=== PATIENT | female | born 1990 | race Caucasian/White ===

== ENCOUNTER → 2016-09-17 | Outpatient (REF) | payer BC | LOC: M LAB REF 16:26 | PROVIDERS: ATTEND Physician Assistant | DX: R30.0 Dysuria (principal) ==

== ENCOUNTER → 2017-02-04 | Outpatient (REF) | payer BC | LOC: M LAB REF 16:55 | PROVIDERS: ATTEND Obstetrics & Gynecology | DX: Z12.4 Encounter for screening for malignant neoplasm of cervix (principal) ==

== ENCOUNTER → 2017-05-14 | Outpatient (CLI) | payer BC ==
[2017-05-14 19:48] LABS: HCG, SERUM QUANTITATIVE 4522 MIU/ML
== END ==
LOC: M LAB 17:35
DX: O26.851 Spotting complicating pregnancy, first trimester (principal); Z3A.00 Weeks of gestation of pregnancy not specified
CPT/HCPCS: 84702

== ENCOUNTER → 2017-05-16 | Outpatient (CLI) | payer BC ==
[2017-05-16 19:30] LABS: HCG, SERUM QUANTITATIVE 5422 MIU/ML
== END ==
LOC: M LAB 18:03
DX: O26.851 Spotting complicating pregnancy, first trimester (principal)
CPT/HCPCS: 84702

== ENCOUNTER → 2017-05-22 | Outpatient (CLI) | payer BC ==
[2017-05-22 13:23] LABS: HCG, SERUM QUANTITATIVE 3045 MIU/ML
[2017-05-23 08:51] LABS: TYPE AND SCREEN 1 1
== END ==
LOC: M LAB 11:10
DX: O20.0 Threatened abortion (principal)
CPT/HCPCS: 84702

== ENCOUNTER → 2017-05-31 | Outpatient (CLI) | payer BC ==
[2017-05-31 14:50] LABS: HCG, SERUM QUANTITATIVE 68 MIU/ML
== END ==
LOC: M LAB 13:59
DX: O26.851 Spotting complicating pregnancy, first trimester (principal)
CPT/HCPCS: 84702

== ENCOUNTER → 2017-06-07 | Outpatient (CLI) | payer BC ==
[2017-06-07 16:17] LABS: HCG, SERUM QUANTITATIVE 7 MIU/ML
== END ==
LOC: M LAB 14:57
DX: O03.4 Incomplete spontaneous abortion without complication (principal)
CPT/HCPCS: 84702

== ENCOUNTER → 2017-12-01 | Outpatient (CLI) | payer BC ==
[2017-12-01 18:18] LABS: BASO % 0.5 % (0.0-1.0); EOS # 0.1 10^3/uL (0.0-0.50); EOS % 0.8 % (0.0-3.0); HEMATOCRIT 38.9 % (36.0-47.0); HEMOGLOBIN 12.7 g/dl (12.0-15.5); IMMATURE GRANULOCYTE % 0.5 % (0-3.0); LYMPH # 1.6 10^3/uL (1.5-6.5); LYMPH % 25.2 % (24.0-44.0); MEAN CORPUSCULAR HEMOGLOBIN 27.5 pg (27.0-33.0); MEAN CORPUSCULAR HGB CONC 32.6 g/dl (32.0-36.5); MEAN CORPUSCULAR VOLUME 84.2 fl (80.0-96.0); MONO # 0.6 10^3/uL (0.0-0.8); MONO % 8.6 % (0.0-5.0); NEUTROPHILS # 4.1 10^3/uL (1.8-7.7); NEUTROPHILS % 64.4 % (36.0-66.0); PLATELET COUNT, AUTOMATED 261 10^3/uL (150-450); RED BLOOD COUNT 4.62 10^6/uL (4.00-5.40); RED CELL DISTRIBUTION WIDTH 13.9 % (11.5-14.5); WHITE BLOOD COUNT 6.4 10^3/uL (4.0-10.0)
[2017-12-01 21:29] LABS: CHLAMYDIA DNA AMPLIFICATION NEGATIVE (NEGATIVE); GC DNA AMPLIFICATION NEGATIVE (NEGATIVE)
[2017-12-03 09:02] LABS: RUBELLA IgG QUALITATIVE IMMUNE (IMMUNE)
[2017-12-03 09:10] LABS: HBsAg Prenatal NEGATIVE (NEGATIVE)
[2017-12-03 09:31] LABS: HEPATITIS C VIRUS ABY INDEX 0.1 INDEX (<0.8)
[2017-12-03 09:32] LABS: HIV 1&2 SCREEN CENTAUR NEGATIVE (NEGATIVE)
== END ==
LOC: M LAB 16:50
DX: Z36.89 Encounter for other specified antenatal screening (principal); Z3A.08 8 weeks gestation of pregnancy
CPT/HCPCS: 86762

== ENCOUNTER → 2018-01-01 | Outpatient (CLI) | payer BC | LOC: M LAB 07:02 | DX: Z13.79 Encounter for other screening for genetic and chromosomal anomalies (principal) | CPT/HCPCS: 36415 ==

== ENCOUNTER → 2018-01-29 | Outpatient (CLI) | payer BC | LOC: M LAB 07:22 | DX: Z13.79 Encounter for other screening for genetic and chromosomal anomalies (principal) | CPT/HCPCS: 36415 ==

== ENCOUNTER → 2018-02-17 | Outpatient (CLI) | payer BC | LOC: M RAD 17:09 | DX: Z34.82 Encounter for supervision of other normal pregnancy, second trimester (principal); Z36.89 Encounter for other specified antenatal screening; Z3A.19 19 weeks gestation of pregnancy | CPT/HCPCS: 76811 ==

== ENCOUNTER → 2018-03-31 | Outpatient (REF) | payer BC ==
[2018-03-31 07:38] LABS: HEMATOCRIT 38.1 % (36.0-47.0); HEMOGLOBIN 12.4 g/dl (12.0-15.5); MEAN CORPUSCULAR HEMOGLOBIN 27.6 pg (27.0-33.0); MEAN CORPUSCULAR HGB CONC 32.5 g/dl (32.0-36.5); MEAN CORPUSCULAR VOLUME 84.7 fl (80.0-96.0); PLATELET COUNT, AUTOMATED 295 10^3/uL (150-450); WHITE BLOOD COUNT 11.5 10^3/uL (4.0-10.0)
[2018-03-31 08:00] LABS: GLUCOSE CHALLENGE TEST 1 HOUR 101 MG/DL (LESS THAN 140)
[2018-03-31 08:15] LABS: TYPE AND SCREEN 1 1
== END ==
LOC: M LAB REF 07:16
DX: Z34.82 Encounter for supervision of other normal pregnancy, second trimester (principal)
CPT/HCPCS: 82950

== ENCOUNTER → 2018-05-27 | Outpatient (REF) | payer BC ==
[2018-05-27 20:33] LABS: INFLUENZA A AMPLIFICATION POSITIVE (NEGATIVE); INFLUENZA B AMPLIFICATION NEGATIVE (NEGATIVE)
== END ==
LOC: M LAB REF 09:09
PROVIDERS: ATTEND Physician Assistant
DX: J11.1 Influenza due to unidentified influenza virus with other respiratory manifestations (principal)

== ENCOUNTER → 2018-06-08 | Outpatient (REF) | payer BC | LOC: M LAB REF 16:51 | PROVIDERS: ATTEND Advanced Practice Midwife | DX: Z34.83 Encounter for supervision of other normal pregnancy, third trimester (principal) ==

== ENCOUNTER → 2018-06-16 | Outpatient (CLI) | payer BC ==
[~2018-06-16] MED LIST: COLA100C5 PO; IBUP1TAB7 PO; MOM30SS PO; PERCOCET PO; PRENTAB9 PO
[2018-06-16 11:49] LABS: HEMATOCRIT 38.5 % (36.0-47.0); MEAN CORPUSCULAR HEMOGLOBIN 26.4 pg (27.0-33.0); MEAN CORPUSCULAR HGB CONC 31.2 g/dl (32.0-36.5); MEAN CORPUSCULAR VOLUME 84.6 fl (80.0-96.0); PLATELET COUNT, AUTOMATED 248 10^3/uL (150-450); RED BLOOD COUNT 4.55 10^6/uL (4.00-5.40); WHITE BLOOD COUNT 9.1 10^3/uL (4.0-10.0)
[2018-06-16 12:46] LABS: TOTAL PROTEIN,RANDOM URINE 19.7 MG/DL (0.0-12.0)
[2018-06-16 12:49] LABS: ALT/SGPT 15 U/L (12-78); BILIRUBIN,TOTAL 0.3 MG/DL (0.2-1.0); CREATININE FOR GFR 0.58 MG/DL (0.55-1.30); GLOMERULAR FILTRATION RATE > 60.0 (>60); LDH LACTATE DEHYDROGENASE 134 U/L (84-246); URIC ACID 4.3 MG/DL (2.6-6.0)
== END ==
LOC: M LAB 09:43
PROVIDERS: ATTEND Advanced Practice Midwife
DX: O16.3 Unspecified maternal hypertension, third trimester (principal)

== ENCOUNTER → 2018-06-16 | Outpatient (CLI) | payer BC ==
--- NOTE | 2018-06-16 14:08 | REP ---
Clinical: Growth evaluation. Maternal hypertension. Comparison: None . Findings: Examination demonstrates a single live intrauterine in cephalic presentation. motion is identified by technologist. Placenta is noted anterior and grade grade 1 without evidence for placenta previa or abruption. Amniotic fluid volume is normal. Cervix measures 3.9 cm in length and appears closed. Gestational age by LMP 36 weeks 6 days with IAN 07/08/2018 . Gestational age by current measurements 37 weeks 4 day with IAN 07/03/2018 . FHR equals 160 beats per minute. BPD 9.2 cm 37 weeks 3 days HC 32.9 cm 37 weeks 3 days AC 34.0 cm 37 weeks 6 days FL 7.4 cm 37 weeks 6 days HL 6.5 cm 37 weeks 3 days HC/AC ratio 0.97 Estimated weight 3303 grams ( 69th percentile). Amniotic fluid index: 13.2 cm (7.5 - 24.5). Limited anatomical assessment without obvious abnormality. Impression: Single live advanced gestation in cephalic presentation demonstrating appropriate interval growth. No gross abnormalities are identified. Electronically Signed by Ricci Calderón MD 06/16/2018 02:00 P
== END ==
LOC: M RAD 13:07
PROVIDERS: ATTEND Advanced Practice Midwife
DX: O16.3 Unspecified maternal hypertension, third trimester (principal); Z3A.36 36 weeks gestation of pregnancy

== ENCOUNTER 2018-06-18 11:46 | Inpatient (IN) | payer BC ==
[2018-06-18] VITALS (14 sets, daily range): BP systolic 112–176; BP diastolic 63–94
[~2018-06-18] VITALS: Ht 172.7 cm; Wt 118.2 kg
[2018-06-18] MEDS ORDERED: PRENTAB9 PO (12:16)
--- NOTE | 2018-06-18 13:21 | HPE ---
DATE OF ADMISSION: 06/18/2018 HISTORY: 28-year-old, (G) 3, para (P) 0-0-2-0, female at 37 and 1/7 weeks gestation by last menstrual period (LMP) consistent with 8 week ultrasound and expected date of confinement (EDC) of 07/08/2018 who presents for labor induction due to diagnosis of gestational hypertension. The patient denies headaches or contractions. COURSE: Patient initiated care at 8 weeks gestation on 12/01/2017. Her first trimester blood pressure was 118/82. course was significant for history of spinal fusion surgery. She did have a consult with anesthesia during antepartum care. They were unable to determine with certainty if they would be able to place an epidural catheter or not. She developed hypertension at 36 plus weeks on 06/15/2018 with blood pressure of 138/102 in the office. OBSTETRICAL HISTORY: Therapeutic (TAB) times one. Spontaneous times one. MEDICAL HISTORY: Cervical dysplasia. SURGICAL HISTORY: 1. Spinal fusion in 2006. 2. LEEP procedure in 2015. ALLERGIES: None. SOCIAL HISTORY: Father of the baby is involved. Patient denies cigarettes, alcohol or drug use. FAMILY HISTORY: Noncontributory. PHYSICAL EXAMINATION: Blood pressure 148/84. Pulse 84. No apparent distress. Head and neck exam normal. Lungs: Clear. Heart: Regular rate and rhythm. Abdomen: Nontender. Gravid. heart tones Category 1. Contractions irregular. Sterile Vaginal Exam: Fingertip, 70%, -2, posterior, vertex, moderate consistency. LABS: Blood type A negative. Rubella immune. RPR nonreactive. Hepatitis B and C negative. Diabetes screen 101. GBS negative on 06/08/2018. ASSESSMENT: 28-year-old, G3, P0-0-2-0 female at 37 and 1/7 weeks gestation admitted with gestational hypertension. The patient is admitted on 06/18/2018 and plan is for labor induction. Risks of induction were discussed.
[2018-06-18] MEDS: miSOPROStol 50 MCG 1/2 TAB (S0191) SL SCH ×2 (13:38→18:59)
[2018-06-18 13:51] LABS: HEMATOCRIT 39.2 % (36.0-47.0); HEMOGLOBIN 12.7 g/dl (12.0-15.5); MEAN CORPUSCULAR HGB CONC 32.4 g/dl (32.0-36.5); MEAN CORPUSCULAR VOLUME 83.4 fl (80.0-96.0); PLATELET COUNT, AUTOMATED 250 10^3/uL (150-450); WHITE BLOOD COUNT 10.4 10^3/uL (4.0-10.0)
[2018-06-18 14:19] LABS: ALT/SGPT 13 U/L (12-78); BILIRUBIN,TOTAL 0.3 MG/DL (0.2-1.0); CREATININE FOR GFR 0.56 MG/DL (0.55-1.30); GLOMERULAR FILTRATION RATE > 60.0 (>60); LDH LACTATE DEHYDROGENASE 155 U/L (84-246)
[2018-06-18] MEDS ORDERED: LR 1,000 ML IV SCH (23:05)
[2018-06-18] MEDS ORDERED: OXYTOCIN DRIP 30 UNITS in APPROPRIATE DILUENT 1 EA IV SCH (23:15)
[2018-06-19] VITALS (48 sets, daily range): BP systolic 93–166; BP diastolic 50–104
[2018-06-19] MEDS ORDERED: FENTANYL 2MCG/ML ROPIVACAINE 0.2% IN 0.9% NACL 100ML IVBAG As Ordered ONE ×2 (00:47→09:58)
[2018-06-19] MEDS ORDERED: PROMETHAZINE INJ 25 MG/ML VIAL (J2550) IV ONE (02:45)
[2018-06-19] MEDS ORDERED: BUTORPHANOL 2 MG/ML INJ (J0595) IV ONE (02:45)
--- NOTE | 2018-06-19 08:54 | IPNPDOC ---
Text Note Date of Service The patient was seen on 06/19/18. NOTE Bedside sono confirms vertex presentation Pitocin @ 8mu UC Q 2-3 minutes, mild SVE difficult to reach, outer os FT, unable to pass through inner os, -3, + bloody show Attempted to place Cooks catheter, aborted attempt when unable to pass catheter through inner os Will reattempt in a few hours. Pt is in agreement. VS,Fishbone, I+O VS, Fishbone, I+O Laboratory Tests 06/18/18 13:25 Red Blood Count 4.70, Mean Corpuscular Volume 83.4, Mean Corpuscular Hemoglobin 27.0, Mean Corpuscular Hemoglobin Concent 32.4, Red Cell Distribution Width 14.9 H, Aspartate Amino Transf (AST/SGOT) 14, Alanine Aminotransferase (ALT/SGPT) 13, Lactate Dehydrogenase 155, Total Bilirubin 0.3, Uric Acid 5.0 Vital Signs Date Time Temp Pulse Resp B/P (MAP) Pulse Ox O2 Delivery O2 Flow Rate FiO2 06/19/18 07:32 92 130/74 (92) 06/19/18 07:19 97.8 18 Candelaria Segundo CNM Jun 19, 2018 08:54
--- NOTE | 2018-06-19 11:30 | IPNPDOC ---
Text Note Date of Service The patient was seen on 06/19/18. NOTE Comfortable with epidural Pitocin restarted @ 2 mu FH 150, Cat I UC Q 2-3 minutes, mild SVE cervix more anterior, soft, /-1, able to pass through inner os Cooks catheter placed 60/40cc Moderate bloody show Dr Madera updated. VS,Fishbone, I+O VS, Fishbone, I+O Laboratory Tests 06/18/18 13:25 Red Blood Count 4.70, Mean Corpuscular Volume 83.4, Mean Corpuscular Hemoglobin 27.0, Mean Corpuscular Hemoglobin Concent 32.4, Red Cell Distribution Width 14.9 H, Aspartate Amino Transf (AST/SGOT) 14, Alanine Aminotransferase (ALT/SGPT) 13, Lactate Dehydrogenase 155, Total Bilirubin 0.3, Uric Acid 5.0 Vital Signs Date Time Temp Pulse Resp B/P (MAP) Pulse Ox O2 Delivery O2 Flow Rate FiO2 06/19/18 09:32 98.0 95 20 144/89 (107) Candelaria Segundo CNM Jun 19, 2018 11:30
[2018-06-19] MEDS ORDERED: ONDANSETRON 4MG/2ML VIAL (J2405) IV PRN ×4 (12:00→19:15)
[2018-06-19] MEDS ORDERED: NALOXONE INJ 0.4 MG/1 ML VIAL (J2310) IV PRN ×3 (12:00→18:16)
[2018-06-19] MEDS ORDERED: diphenhydrAMINE INJ 50MG/ML VIAL (J1200) IV PRN ×2 (12:00→18:16)
[2018-06-19] MEDS ORDERED: REFRIGERATOR IV KEYS XX PRN (12:00)
[2018-06-19] MEDS ORDERED: FENTANYL/ROPIVACAINE/NACL BAG 100 ML EPIDURAL SCH (12:00)
[2018-06-19] MEDS ORDERED: ePHEDrine SULFATE 25 MG/5 ML(5MG/ML) SYRINGE IV PRN (12:00)
[2018-06-19] MEDS ORDERED: EPIDURAL/PCA KEYS XX PRN (12:00)
[2018-06-19] MEDS ORDERED: EPIDURAL COMMENT XX SCH (12:00)
[2018-06-19] MEDS ORDERED: LACTATED RINGER'S 1000 ML IV PRN (12:00)
--- NOTE | 2018-06-19 13:32 | IPNPDOC ---
Text Note Date of Service The patient was seen on 06/19/18. NOTE UC difficult to trace due to position and habitus FH Cat II, episode of tachycardia to 170's-180's resolved with pitocin off and IV fluid bolus Now 160's, minimal variability. IV bolus continues. Cooks catheter in place Will update Dr Madera VS,Allyson, I+O VS, Allyson, I+O Vital Signs Date Time Temp Pulse Resp B/P (MAP) Pulse Ox O2 Delivery O2 Flow Rate FiO2 06/19/18 13:18 99.4 96 18 136/79 (98) Candelaria Segundo CNM Jun 19, 2018 13:32
--- NOTE | 2018-06-19 15:15 | IPNPDOC ---
Text Note Date of Service The patient was seen on 06/19/18. NOTE heart tracing varies from 150's with minimal variability to wild accelerations 170's-180's with activity that is difficult to monitor UC not tracing at this time External cooks bulb deflated. Inner bulb palpable through cervical os, but still firmly in place. Increased bloody show Vaginal bulb reinflated with 40cc NS Dr Madera aware of pt status and inability to restart pitocin until Cat I tracing VS,Fishbone, I+O VS, Fishbone, I+O Vital Signs Date Time Temp Pulse Resp B/P (MAP) Pulse Ox O2 Delivery O2 Flow Rate FiO2 06/19/18 13:18 99.4 96 18 136/79 (98) Candelaria Segundo CNM Jun 19, 2018 15:15
[2018-06-19] MEDS ORDERED: BICITRA 30ML SOLN UDC PO ONE (16:30)
[2018-06-19] MEDS ORDERED: LACTATED RINGER'S 1000 ML IV STA (16:30)
[2018-06-19] MEDS ORDERED: AZITHROMYCIN INJ 500 MG, VIAL MATE ADAPTER 1 EACH in D5W 250 ML IV ONE (16:30)
[2018-06-19 16:31] LABS: HEMATOCRIT 35.3 % (36.0-47.0); HEMOGLOBIN 11.4 g/dl (12.0-15.5); MEAN CORPUSCULAR HEMOGLOBIN 27.1 pg (27.0-33.0); MEAN CORPUSCULAR HGB CONC 32.3 g/dl (32.0-36.5); MEAN CORPUSCULAR VOLUME 83.8 fl (80.0-96.0); PLATELET COUNT, AUTOMATED 224 10^3/uL (150-450); RED BLOOD COUNT 4.21 10^6/uL (4.00-5.40); WHITE BLOOD COUNT 11.3 10^3/uL (4.0-10.0)
--- NOTE | 2018-06-19 16:36 | IPNPDOC ---
Text Note Date of Service The patient was seen on 06/19/18. NOTE Pitocin restarted 1526 with Cat I tracing Pitocin off 1605 for Cat II tracing with minimal variability Dr Madera informed of inability to augment labor, called Cooks catheter removed, 1-2 cm, no significant change Pt and family verbalize understanding of need for VS,Fishbone, I+O VS, Fishbone, I+O Vital Signs Date Time Temp Pulse Resp B/P (MAP) Pulse Ox O2 Delivery O2 Flow Rate FiO2 06/19/18 13:18 99.4 96 18 136/79 (98) Candelaria Segundo CNM Jun 19, 2018 16:36
[2018-06-19] MEDS ORDERED: ONDANSETRON 4MG/2ML VIAL (J2405) As Ordered ONE (17:18)
[2018-06-19] MEDS ORDERED: OXYTOCIN INJ 10 UNITS/ML VIAL (J2590) As Ordered ONE ×2 (17:18→18:08)
[2018-06-19] MEDS ORDERED: dexameTHASONE 4 MG/ML 1ML VIAL (J1100) As Ordered ONE (17:18)
[2018-06-19] MEDS ORDERED: LIDOCAINE PRES-FREE 2% 10ML AMP As Ordered ONE (17:18)
[2018-06-19] MEDS ORDERED: MORPHINE PRES-FREE INJ 10 MG/10 ML VIAL (J2274) As Ordered ONE (17:21)
[2018-06-19] MEDS ORDERED: PHENYLephrine HCL 500 MCG/5 ML (100MCG/ML) SYRINGE (J2370) As Ordered ONE (17:47)
[2018-06-19] MEDS ORDERED: ePHEDrine SULFATE 25 MG/5 ML(5MG/ML) SYRINGE As Ordered ONE (17:58)
[2018-06-19 18:13] LABS: CORD GAS ABE A -3.1; CORD GAS HCO3 A 24.7 MEQ/L; CORD GAS O2 SAT A 26.3 %; CORD GAS PCO2 A 55.4 mmHg; CORD GAS PH A 7.267 UNITS; CORD GAS PO2 A 15.9 mmHg; CORD GAS SBC A 20.3 MEQ/L; CORD GAS TCO2 A 26.4 MEQ/L
[2018-06-19] MEDS ORDERED: METOCLOPRAMIDE INJ 10MG/2ML VIAL (J2765) IV PRN (18:16)
[2018-06-19] MEDS ORDERED: NALBUPHINE HCL 10 MG/ML AMP (J2300) IV PRN ×2 (18:16→19:15)
[2018-06-19 18:17] LABS: CORD GAS ABE V -3.1; CORD GAS HCO3 V 23.1 MEQ/L; CORD GAS O2 SAT V 47.4 %; CORD GAS PCO2 V 45.5 mmHg; CORD GAS PH V 7.323 UNITS; CORD GAS PO2 V 20.5 mmHg; CORD GAS SBC V 20.7 MEQ/L; CORD GAS TCO2 V 24.5 MEQ/L
[2018-06-19] MEDS ORDERED: MEASLES,MUMPS,RUBELLA VACCINE INJ (MMR-II) (90707) SC SCH (19:15)
[2018-06-19] MEDS ORDERED: fentaNYL 100 MCG/2 ML INJECTION (J3010) IV PRN (19:15)
[2018-06-19] MEDS ORDERED: LR 1,000 ML IV SCH (19:15)
[2018-06-19] MEDS ORDERED: PERCOCET 5MG/325MG TAB PO PRN ×2 (19:15)
[2018-06-19] MEDS ORDERED: MOM 30ML SUSPENSION UDC PO PRN (19:15)
[2018-06-19] MEDS ORDERED: RHOGAM 300 MCG (1500 IU) INJ (J2790) IM SCH (19:15)
--- NOTE | 2018-06-19 19:40 | RO ---
DATE OF PROCEDURE: 06/19/2018 PREOPERATIVE DIAGNOSIS: Inability to augment labor. POSTOPERATIVE DIAGNOSIS: Inability to augment labor. PROCEDURE PERFORMED: Primary lower transverse section. SURGEON: Lauren Madera MD HORSE [employer] WAGON DRIVER: Roshan Dwyer MD ANESTHESIA: Epidural. ESTIMATED BLOOD LOSS: 1 liter URINE OUTPUT: 100 mL FLUIDS: 2 liters of lactated Ringer's solution. OPERATIVE FINDINGS: Live born female infant, scores 8 and 9, weight was 7 pounds 3 ounces, 3270 grams. PREOPERATIVE ANTIBIOTICS: 2 grams of Ancef. SPECIMENS: Cord blood and cord gases. Cord gases 7.26, 7.32 with base excess of -3.1 and -3.1. DESCRIPTION OF OPERATION: After informed consent was obtained and written consent was reviewed, the patient was brought to the operating room and she was placed in supine position with a left lateral tilt. She had a Payan catheter that was previously placed, set to gravity. She was prepped and draped in a normal sterile fashion. A time-out in the operating room was then performed identifying the patient, procedure performed, as well as drug allergies. Anesthesia was tested and deemed to be adequate. A Pfannenstiel skin incision was then made and carried down to the underlying rectus fascia. The fascia was scored, and this incision was extended bilaterally. The fascia was then dissected off the underlying rectus muscles both superiorly inferiorly. The rectus muscles were in the midline. The peritoneum was then entered. The vesicouterine peritoneum was then tented and excised, created a bladder flap. Curvilinear incision was then made in the lower uterine segment. Amniotomy was performed productive of clear fluid. head was brought to the level of the incision atraumatically and was delivered along with shoulders and corpus. Cord was clamped times two. Infant was taken over to the warmer with a good cry. Dr. Mccann, After School Program Coordinator, awaited. The uterine incision was then closed in two layers using #0 Vicryl first in a running locking fashion followed by a second layer for imbrication in a running nonlocking fashion. There were several [id number] stitches placed for hemostasis. There was also closure of the left lateral extension towards the cervix. This was closed with #0 Vicryl with a [id number]. The abdomen was then irrigated. Uterine incision was inspected and noted to be hemostatic. It was returned in the patient's abdomen and was once again reinspected, noted to be hemostatic. The anterior peritoneum was reapproximated with #3-0 Vicryl. The fascia was then closed with #0 Vicryl in a running nonlocking fashion. The subcutaneous tissue was then irrigated and suctioned. Subcutaneous tissue was reapproximated with #3-0 Vicryl. Several subdermal stitches were placed with #3-0 Vicryl, and the skin was closed with #4-0 Monocryl in a subcuticular fashion. Incision was then clean and dry and was dressed. The patient was then taken to recovery in stable condition. Counts were correct. Dr. Neri, my surgical asst, played an essential role during the surgery. He assisted with tissue identification and retraction, as well as wound closure. FARIDA
[2018-06-19] MEDS: LR 1,000 ML IV SCH (21:44)
[2018-06-19] MEDS: DOCUSATE SODIUM 100 MG CAP PO SCH (22:15)
[2018-06-20] VITALS (7 sets, daily range): BP systolic 104–132; BP diastolic 55–68
[2018-06-20] MEDS: KETOROLAC 30 MG/ML VIAL (J1885) IV SCH ×3 (00:37→12:08)
[2018-06-20] MEDS: LR 1,000 ML IV SCH (06:34)
[2018-06-20 07:19] LABS: HEMATOCRIT 28.5 % (36.0-47.0); MEAN CORPUSCULAR HEMOGLOBIN 26.6 pg (27.0-33.0); MEAN CORPUSCULAR HGB CONC 31.6 g/dl (32.0-36.5); MEAN CORPUSCULAR VOLUME 84.3 fl (80.0-96.0); PLATELET COUNT, AUTOMATED 215 10^3/uL (150-450); RED BLOOD COUNT 3.38 10^6/uL (4.00-5.40); WHITE BLOOD COUNT 14.8 10^3/uL (4.0-10.0)
--- NOTE | 2018-06-20 07:45 | IPNPDOC ---
Text Note Date of Service The patient was seen on 06/20/18. NOTE PO #1 Feels well. Adequate pain management. . Payan d/c this am VSS, afebrile, normotensive Breasts soft, nipples intact Fundus firm, NT Dressing intact, old drainage PO #1 Routine care. Enc to slowly advance diet. OOB activity. Enc frequent voiding this am till well established VS,Fishbone, I+O VS, Fishbone, I+O Vital Signs Date Time Temp Pulse Resp B/P (MAP) Pulse Ox O2 Delivery O2 Flow Rate FiO2 06/20/18 06:44 97.2 84 18 132/55 (80) 97 I&O- Last 24 Hours up to 6 AM 06/20/18 06:00 Intake Total 250 ml Output Total 2450 ml Balance -2200 ml Candelaria Segundo CNM Jun 20, 2018 07:45
[2018-06-20] MEDS: DOCUSATE SODIUM 100 MG CAP PO SCH ×2 (08:12→20:21)
[2018-06-20] MEDS: PRENATAL VITAMINS CHEWABLE TABLET PO SCH (08:12)
[2018-06-20] MEDS: IBUPROFEN 800 MG TAB PO SCH (20:21)
[2018-06-21 01:45] VITALS: BP 122/59
[2018-06-21] MEDS: IBUPROFEN 800 MG TAB PO SCH ×2 (04:47→12:00)
[2018-06-21 05:51] VITALS: BP 133/77
[2018-06-21] MEDS: DOCUSATE SODIUM 100 MG CAP PO SCH (08:37)
[2018-06-21] MEDS: PRENATAL VITAMINS CHEWABLE TABLET PO SCH (09:00)
[2018-06-21] MEDS ORDERED: IBUP1TAB7 PO (09:06)
[2018-06-21] MEDS ORDERED: PERCOCET PO (09:07)
[2018-06-21] MEDS ORDERED: COLA100C5 PO (10:45)
[2018-06-21] MEDS ORDERED: MOM30SS PO (10:45)
--- NOTE | 2018-06-21 10:54 | DSES ---
DATE OF ADMISSION: 06/18/2018 DATE OF DISCHARGE: 06/21/2018 DISCHARGE DIAGNOSIS: 1. Gestational hypertension. 2. section for inability augment labor. PROCEDURES PERFORMED: 1. Epidural. 2. section. CONDITION ON DISCHARGE: Stable. HISTORY AND HOSPITAL COURSE: Mrs. Reece is a 28-year-old 1 who presented 37+ weeks for induction of labor secondary to gestational hypertension. She started to category 2 rate tracing that did not resolve with conservative interventions she underwent a section with indication for inability to augment labor. Persistent category II tracing. section was unremarkable. [place] was 22554 mL. Productive of live born female infant, 8 and 9, weight 7 pounds 3 ounces or 3270 grams. Mrs. Reece did well postoperatively. By postop day #2 had met all discharge criteria and was discharged home in stable condition. PHYSICAL EXAMINATION: Vital signs were stable. She was afebrile. General appearance: Well appearing, no acute distress. Her abdomen is soft, appropriately tender. The fundus was firm below umbilicus. Her incision was dressed. Extremities: Negative for calf tenderness. DISCHARGE INSTRUCTIONS: 1. She was instructed to followup in 2 weeks for incision check. 2. Remain on pelvic rest. 3. Report severe pain, heavy vaginal bleeding, fever or incisional issues. DISCHARGE MEDICATIONS: Ibuprofen and Percocet.
== END 2018-06-21 12:30 | disposition home or self-care (01) | DRG 540 ==
LOC: M LDI 11:46 → M OBS 06-19 20:39
PROVIDERS: ADMIT Specialist; ATTEND Specialist
PROC: 3E033VJ Introduction of Other Hormone into Peripheral Vein, Percutaneous Approach (ICD-10-PCS; 2018-06-18)
PROC: 10D00Z1 Extraction of Products of Conception, Low, Open Approach (ICD-10-PCS; principal; 2018-06-19 17:33)
DX: O13.4 Gestational [pregnancy-induced] hypertension without significant proteinuria, complicating childbirth (principal); Z37.0 Single live birth; Z3A.37 37 weeks gestation of pregnancy; O61.0 Failed medical induction of labor; O76 Abnormality in fetal heart rate and rhythm complicating labor and delivery

== ENCOUNTER → 2018-07-06 | Outpatient (REF) | payer BC ==
[~2018-07-06] MED LIST changes: +SULF1TAB72
== END ==
LOC: M LAB REF 19:17
PROVIDERS: ATTEND Physician Assistant Medical
DX: L05.01 Pilonidal cyst with abscess (principal)

== ENCOUNTER 2018-07-08 10:27 | Emergency (ER) | payer BC ==
[~2018-07-08] VITALS: Ht 172.7 cm; Wt 100.0 kg
[~2018-07-08 10:27] MED LIST changes: -SULF1TAB72
[2018-07-08 10:28] VITALS: BP 130/87
[2018-07-08] MEDS ORDERED: SULF1TAB72 (10:34)
[2018-07-08] MEDS ORDERED: LIDOCAINE 1% MDV 20ML VIAL SC ONE (11:30)
== END 2018-07-08 12:03 | disposition home or self-care (01) ==
LOC: M ED 10:27
DX: L05.01 Pilonidal cyst with abscess (principal); Z86.14 Personal history of Methicillin resistant Staphylococcus aureus infection

== ENCOUNTER → 2018-08-19 | Outpatient (CLI) | payer BC ==
[~2018-08-19] MED LIST changes: +SULF1TAB72
[2018-08-19 18:11] LABS: BASO # 0.1 10^3/uL (0.0-0.2); BASO % 0.7 % (0.0-1.0); EOS # 0.3 10^3/uL (0.0-0.50); EOS % 3.8 % (0.0-3.0); HEMOGLOBIN 12.4 g/dl (12.0-15.5); LYMPH # 2.6 10^3/uL (1.5-4.5); LYMPH % 32.1 % (24.0-44.0); MEAN CORPUSCULAR VOLUME 80.6 fl (80.0-96.0); MONO # 0.6 10^3/uL (0.0-0.8); MONO % 7.9 % (0.0-5.0); NEUTROPHILS # 4.5 10^3/uL (1.8-7.7); NEUTROPHILS % 55.3 % (36.0-66.0); PLATELET COUNT, AUTOMATED 310 10^3/uL (150-450); RED BLOOD COUNT 4.96 10^6/uL (4.00-5.40); WHITE BLOOD COUNT 8.1 10^3/uL (4.0-10.0)
[2018-08-19 18:33] LABS: HEMOGLOBIN A1c 5.3 %
[2018-08-19 18:49] LABS: ALBUMIN 3.7 GM/DL (3.2-5.2); ALT/SGPT 29 U/L (12-78); BILIRUBIN,TOTAL 0.3 MG/DL (0.2-1.0); BLOOD UREA NITROGEN 18 MG/DL (7-18); CARBON DIOXIDE LEVEL 29 MEQ/L (21-32); CHLORIDE LEVEL 106 MEQ/L (98-107); CHOLESTEROL LEVEL 189 MG/DL (<200); CHOLESTEROL RISK RATIO 4.295 (<5); FREE T4 0.91 NG/DL (0.76-1.46); GLOMERULAR FILTRATION RATE > 60.0 (>60); GLUCOSE, FASTING 82 MG/DL (70-100); HDL CHOLESTEROL 44 MG/DL (>40); LDL CHOLESTEROL 108 MG/DL (<100); NON-HDL-C 145 MG/DL; POTASSIUM SERUM 4.5 MEQ/L (3.5-5.1); SODIUM LEVEL 138 MEQ/L (136-145); TOTAL PROTEIN 7.2 GM/DL (6.4-8.2); TRIGLYCERIDES LEVEL 187 MG/DL (<150)
== END ==
LOC: M LAB 17:19
PROVIDERS: ATTEND Physician Assistant
DX: Z13.29 Encounter for screening for other suspected endocrine disorder (principal)

== ENCOUNTER → 2018-08-27 | Outpatient (REF) | payer BC ==
[2018-08-27 20:06] LABS: CHLAMYDIA DNA AMPLIFICATION NEGATIVE (NEGATIVE); GC DNA AMPLIFICATION NEGATIVE (NEGATIVE)
== END ==
LOC: M LAB REF 17:08
PROVIDERS: ATTEND Advanced Practice Midwife
DX: Z11.3 Encounter for screening for infections with a predominantly sexual mode of transmission (principal)

== ENCOUNTER → 2019-03-03 | Outpatient (CLI) | payer BC ==
--- NOTE | 2019-03-04 02:02 | REP ---
Clinical: Thoracolumbar fusion. Technique: Two AP views of the thoracic and lumbar spine. Findings: S-shaped scoliosis is appreciated. Herrera rods are identified through the thoracic and lumbar spine. There is approximately 25 degrees of dextroconvex scoliosis through the thoracic spine as measured from T3 to T11 followed by approximately 19 degrees of levoconvex scoliosis as measured from T11-L4. Impression: Scoliosis. Herrera rods in place. Electronically Signed by Ricci Calderón MD 03/04/2019 01:53 A
== END ==
LOC: M RAD 17:02
PROVIDERS: ATTEND Physician Assistant
DX: M43.25 Fusion of spine, thoracolumbar region (principal); M41.85 Other forms of scoliosis, thoracolumbar region

== ENCOUNTER → 2020-01-01 | Outpatient (REF) | payer BC ==
[~2020-01-01] MED LIST changes: -SULF1TAB72; +SULF400T14
== END ==
LOC: M LAB REF 16:00
PROVIDERS: ATTEND Physician Assistant
DX: R05 Cough (principal); R50.9 Fever, unspecified; Z20.828 Contact with and (suspected) exposure to other viral communicable diseases

== ENCOUNTER → 2020-03-23 | Outpatient (CLI) | payer BC ==
[2020-03-23 07:40] LABS: BASO # 0.1 10^3/uL (0.0-0.2); BASO % 0.7 % (0.0-1.0); EOS # 0.3 10^3/uL (0.0-0.5); EOS % 2.7 % (0.0-3.0); HEMOGLOBIN 12.6 g/dl (12.0-15.5); LYMPH # 3.1 10^3/uL (1.5-5.0); LYMPH % 32.4 % (24.0-44.0); MEAN CORPUSCULAR HEMOGLOBIN 26.6 pg (27.0-33.0); MEAN CORPUSCULAR VOLUME 88.8 fl (80.0-96.0); MONO # 0.7 10^3/uL (0.0-0.8); MONO % 6.9 % (0.0-5.0); NEUTROPHILS # 5.5 10^3/uL (1.5-8.5); NEUTROPHILS % 56.9 % (36.0-66.0); PLATELET COUNT, AUTOMATED 359 10^3/uL (150-450); RED BLOOD COUNT 4.73 10^6/uL (4.00-5.40); WHITE BLOOD COUNT 9.6 10^3/uL (4.0-10.0)
[2020-03-23 07:59] LABS: HEMOGLOBIN A1c 5.5 %
[2020-03-23 08:04] LABS: ALBUMIN 3.6 GM/DL (3.2-5.2); ALT/SGPT 33 U/L (12-78); BILIRUBIN,TOTAL 0.1 MG/DL (0.2-1.0); BLOOD UREA NITROGEN 21 MG/DL (7-18); CALCIUM LEVEL 9.1 MG/DL (8.5-10.1); CARBON DIOXIDE LEVEL 28 MEQ/L (21-32); CHLORIDE LEVEL 104 MEQ/L (98-107); CHOLESTEROL LEVEL 168 MG/DL (<200); CREATININE FOR GFR 0.92 MG/DL (0.55-1.30); FREE T4 0.87 NG/DL (0.76-1.46); GLOMERULAR FILTRATION RATE > 60.0 (>60); GLUCOSE, FASTING 92 MG/DL (70-100); HDL CHOLESTEROL 48 MG/DL (>40); LDL CHOLESTEROL 93 MG/DL (<100); NON-HDL-C 120 MG/DL; POTASSIUM SERUM 4.5 MEQ/L (3.5-5.1); SODIUM LEVEL 137 MEQ/L (136-145); TOTAL PROTEIN 7.5 GM/DL (6.4-8.2); TRIGLYCERIDES LEVEL 136 MG/DL (<150)
[2020-03-23 10:59] LABS: FOLLICLE STIMULATING HORMONE 6.7 mIU/mL; LUTEINIZING HORMONE 4.6 mIU/mL
[2020-03-24 19:40] LABS: TESTOSTERONE FREE (DIRECT) 2.6 pg/mL (0.0-4.2)
== END ==
LOC: M LAB 07:01
PROVIDERS: ATTEND Family Medicine
DX: Z13.220 Encounter for screening for lipoid disorders (principal); Z13.29 Encounter for screening for other suspected endocrine disorder; Z13.0 Encounter for screening for diseases of the blood and blood-forming organs and certain disorders involving the immune mechanism; L68.0 Hirsutism

== ENCOUNTER → 2020-04-01 | Outpatient (CLI) | payer BC | LOC: M LABSMTC 09:00 | PROVIDERS: ATTEND Pediatrics | DX: Z20.828 Contact with and (suspected) exposure to other viral communicable diseases (principal) ==

== ENCOUNTER → 2020-04-12 | Outpatient (REF) | payer SELFPAY | LOC: M LABSMTC 12:28 → EDSTATUS 12:35 | PROVIDERS: ATTEND Pediatrics | DX: Z20.828 Contact with and (suspected) exposure to other viral communicable diseases (principal) ==

== ENCOUNTER → 2020-10-31 | Outpatient (CLI) | payer BC ==
[~2020-10-31] MED LIST changes: +ALPR0.5T3; +AMPH1CAP15; +CEPH500T PO; +OFLO3OPSO
[2020-10-31 12:19] LABS: HEPATITIS B CORE ANTIBODY IGM NEGATIVE (NEGATIVE); HEPATITIS B SURFACE ANTIGEN NEGATIVE (NEGATIVE); HIV 1&2 SCREEN CENTAUR NEGATIVE (NEGATIVE)
[2020-10-31 13:53] LABS: GC DNA AMPLIFICATION NEGATIVE (NEGATIVE)
== END ==
LOC: M LAB 09:38
PROVIDERS: ATTEND Physician Assistant
DX: Z11.3 Encounter for screening for infections with a predominantly sexual mode of transmission (principal)

== ENCOUNTER → 2021-02-09 | Outpatient (REF) ==
[~2021-02-09] MED LIST changes: -ALPR0.5T3; -AMPH1CAP15; -CEPH500T PO; -OFLO3OPSO
== END ==
LOC: M EMP 09:54
PROVIDERS: ATTEND Family Medicine
DX: Z20.822 Contact with and (suspected) exposure to COVID-19 (principal)

== ENCOUNTER 2021-04-07 10:07 | Emergency (ER) | payer BC ==
[~2021-04-07] VITALS: Ht 170.2 cm; Wt 89.8 kg
[2021-04-07] MEDS ORDERED: OFLO3OPSO (10:16)
[2021-04-07] MEDS ORDERED: ALPR0.5T3 (10:16)
[2021-04-07] MEDS ORDERED: AMPH1CAP15 (10:16)
[2021-04-07] MEDS ORDERED: PROPARACAINE 0.5% OPHTH SOL 15ML OS ONE (10:55)
[2021-04-07] MEDS ORDERED: FLUORESCEIN OPHTH 1 MG STRIP OS ONE (10:55)
[2021-04-07] MEDS ORDERED: CEPH500T PO (13:02)
[2021-04-07] MEDS ORDERED: CEPHALEXIN 500 MG CAP PO ONE (13:05)
[2021-04-07 13:08] VITALS: BP 137/88
== END 2021-04-07 13:10 | disposition home or self-care (01) ==
LOC: M ED 10:07
DX: H01.006 Unspecified blepharitis left eye, unspecified eyelid (principal); H10.9 Unspecified conjunctivitis; F41.9 Anxiety disorder, unspecified; F90.9 Attention-deficit hyperactivity disorder, unspecified type

== ENCOUNTER 2021-08-05 01:39 | Emergency (ER) | payer BC ==
[~2021-08-05] VITALS: Ht 172.7 cm; Wt 86.5 kg
[~2021-08-05 01:39] MED LIST changes: +ALPR0.5T3; +AMPH1CAP15; +CEPH500T PO; +OFLO3OPSO
[2021-08-05] MEDS ORDERED: methylPREDNISolone 125MG 2ML VIAL IV ONE (03:30)
[2021-08-05] MEDS ORDERED: ONDANSETRON 4MG/2ML VIAL IV ONE (03:30)
[2021-08-05] MEDS ORDERED: NS 1,000 ML IV ONE (03:30)
[2021-08-05] MEDS ORDERED: AMPICILLIN SOD/SULBACTAM SOD 3 GM in D5W MINI-BAG PLUS 100 ML IV ONE (03:30)
[2021-08-05 03:31] LABS: BASO # 0.1 10^3/uL (0.0-0.2); BASO % 0.9 % (0.0-1.0); EOS # 0.2 10^3/uL (0.0-0.5); EOS % 2.8 % (0.0-3.0); HEMATOCRIT 39.9 % (36.0-47.0); HEMOGLOBIN 12.9 g/dl (12.0-15.5); LYMPH # 2.7 10^3/uL (1.5-5.0); LYMPH % 40.9 % (24.0-44.0); MEAN CORPUSCULAR HEMOGLOBIN 28.1 pg (27.0-33.0); MEAN CORPUSCULAR HGB CONC 32.3 g/dl (32.0-36.5); MEAN CORPUSCULAR VOLUME 86.9 fl (80.0-96.0); MONO # 0.5 10^3/uL (0.0-0.8); MONO % 8.3 % (2.0-8.0); NEUTROPHILS % 46.8 % (36.0-66.0); PLATELET COUNT, AUTOMATED 314 10^3/uL (150-450); RED BLOOD COUNT 4.59 10^6/uL (4.00-5.40); WHITE BLOOD COUNT 6.5 10^3/uL (4.0-10.0)
[2021-08-05] MEDS ORDERED: ISOVUE-370 76% 100ML VIAL As Ordered ONE (03:33)
[2021-08-05 03:55] LABS: BLOOD UREA NITROGEN 15 MG/DL (7-18); C REACTIVE PROTEIN QUANTITATIV 5.64 MG/DL (0.00-0.30); CALCIUM LEVEL 9.2 MG/DL (8.5-10.1); CARBON DIOXIDE LEVEL 22 MEQ/L (21-32); CHLORIDE LEVEL 108 MEQ/L (98-107); CREATININE FOR GFR 0.81 MG/DL (0.55-1.30); GLOMERULAR FILTRATION RATE > 60.0 (>60); GLUCOSE, FASTING 86 MG/DL (70-100); POTASSIUM SERUM 4.6 MEQ/L (3.5-5.1); SODIUM LEVEL 136 MEQ/L (136-145)
[2021-08-05] MEDS: MORPHINE 4 MG/ML 1ML VIAL/SYRINGE IV PRN ×2 (04:02→05:22)
[2021-08-05 04:13] LABS: RSV AMPLIFICATION NEGATIVE (NEGATIVE)
[2021-08-05 06:00] VITALS: BP 164/81
[2021-08-05] MEDS ORDERED: PRED20TA PO (06:04)
[2021-08-05] MEDS ORDERED: AUGM500T34 PO (06:04)
== END 2021-08-05 07:12 | disposition home or self-care (01) ==
LOC: M ED 01:39
DX: L03.211 Cellulitis of face (principal); R59.0 Localized enlarged lymph nodes; Z79.899 Other long term (current) drug therapy; Z79.2 Long term (current) use of antibiotics; Z98.890 Other specified postprocedural states
CPT/HCPCS: 70491; 80048; 83605; 85025; 86140; 87040; 87077; 87186; 87631; 96365; 96366; 96375; 96376; 99284; J0295; J2270; J2405; J2930; Q9967

== ENCOUNTER → 2023-05-14 | Outpatient (CLI) | payer BC ==
[~2023-05-14] MED LIST changes: +AUGM500T34 PO; -OFLO3OPSO; +OFLO5DRO; +PRED20TA PO
== END ==
LOC: M WHC 09:56
PROVIDERS: ATTEND Family Medicine
DX: Z12.31 Encounter for screening mammogram for malignant neoplasm of breast (principal); R92.323 Mammographic fibroglandular density, bilateral breasts

== ENCOUNTER 2024-03-15 17:23 | Emergency (ER) | payer BC, OTHER ==
[~2024-03-15] VITALS: Ht 172.7 cm; Wt 90.2 kg
[2024-03-15] MEDS ORDERED: AMPH1CAP16 (17:28)
[2024-03-15] MEDS ORDERED: FLUO-290 (17:28)
[2024-03-15] MEDS ORDERED: MIREIUD (17:30)
[2024-03-15] MEDS: ACETAMINOPHEN 500 MG TAB PO ONE (19:45)
[2024-03-15 19:49] VITALS: BP 138/86; TEMP 97.4; O2SAT 100
== END 2024-03-15 20:04 | disposition home or self-care (01) ==
LOC: M ED 17:23
DX: S89.92XA Unspecified injury of left lower leg, initial encounter (principal); X50.1XXA Overexertion from prolonged static or awkward postures, initial encounter; Y92.9 Unspecified place or not applicable; Y93.9 Activity, unspecified; Y99.0 Civilian activity done for income or pay; F90.9 Attention-deficit hyperactivity disorder, unspecified type; F41.9 Anxiety disorder, unspecified; M43.20 Fusion of spine, site unspecified

== ENCOUNTER → 2024-05-19 | Outpatient (CLI) | payer BC ==
[~2024-05-19] MED LIST changes: +AMPH1CAP16; +FLUO-290; +MIREIUD
== END ==
LOC: M WHC 08:29
PROVIDERS: ATTEND Family Medicine
DX: Z12.31 Encounter for screening mammogram for malignant neoplasm of breast (principal); Z15.01 Genetic susceptibility to malignant neoplasm of breast